=== PATIENT | male | born 1970 | race African-American/Black ===

== ENCOUNTER 2017-12-05 14:06 | Emergency (ER) | payer BC ==
[~2017-12-05] VITALS: Ht 177.8 cm; Wt 127.0 kg
[2017-12-05] MEDS ORDERED: methylPREDNISolone SOD SUCC PF 125 MG/2 ML VIAL. IM ONE (14:45)
[2017-12-05] MEDS ORDERED: ACETAMINOPHEN 500 MG TABLET PO ONE (14:45)
[2017-12-05] MEDS ORDERED: IPRATRPIUM/ALBUTEROL 0.5/2.5MG 3 ML NEBU. NEB ONE (14:45)
--- NOTE | 2017-12-05 14:57 | RAD ---
2 view chest 12/05/2017 Clinical indication: Fever, shortness of breath, COPD. Comparison: None. Findings: Cardiac and mediastinal silhouettes are unremarkable. There is mild by basilar atelectasis or scarring. No pleural effusion, pneumothorax or focal consolidation. Impression: Mild bibasilar atelectasis or scarring without evidence of CHF or consolidating pneumonia.
--- NOTE | 2017-12-05 15:30 | PHYS DOC ---
General Chief Complaint: FLU SYMPTOM Stated Complaint: FLU LIKE SYMPTOMS Time Seen by MD: 14:31 Source: patient Exam Limitations: no limitations Problems: History of Present Illness Initial Comments Patient is a 47-year-old male who comes to the ED complaining of fever cough and flulike symptoms. Patient states that since Friday he's had worsening cough with yellow-brown sputum, he began wheezing today and has had some shortness of breath. He has history of asthma and has been out of his medications for a few weeks as his has been ill with pneumonia. He's been having chills and sweats, he is also complaining of severe left-sided abdominal pain which he feels is a pulled muscle from the severe coughing. He has history of hypertension and hyperlipidemia as well, he has no prior cardiac workup and has no family history of coronary artery disease. He denies a smoking history but states that he has been diagnosed with asthma and COPD. ED vitals: 102.1, 113, 20, 191/114, 95% room air Timing/Duration: other (symptoms worsening since Friday) Severity: severe Modifying Factors: worse with movement, improves with rest Associated Symptoms: cough, diaphoresis, fever/chills, malaise, shortness of breath, other Allergies: Coded Allergies: No Known Drug Allergies (Unverified , 12/05/17) Past Medical History Medical History: asthma, high cholesterol, hypertension Surgical History: noncontributory Family History Significant Family History: no pertinent family hx Social History Smoker: non-smoker Alcohol: none Drugs: none Review of Systems Constitutional: see HPI Respiratory: see HPI Cardiovascular: denies chest pain, denies palpitations, denies syncope Gastrointestinal: see HPI, denies diarrhea, denies nausea, denies vomiting Genitourinary: denies dysuria, denies frequency, denies hematuria Musculoskeletal: denies back pain, denies joint swelling, denies neck pain Psychiatric/Neurological: denies headache, denies numbness, denies paresthesia , denies weakness Physical Exam General Appearance: WD/WN, mild distress Eyes: bilateral eye PERRL, bilateral eye EOMI, bilateral eye other ( conjunctivae injected) Ear, Nose, Throat: hearing grossly normal, normal ENT inspection Neck: non-tender, supple Respiratory: chest non-tender, no accessory muscle use, decreased breath sounds , wheezing Cardiovascular: normal peripheral pulses, tachycardia Gastrointestinal: soft (left-sided abdominal muscle tenderness without palpable defect swelling or ecchymosis, bowel sounds present no rebound guarding or masses negative Garduno negative McBurney) Back: no CVA tenderness, no vertebral tenderness Extremities: normal range of motion, non-tender, no pedal edema, no calf tenderness Neurologic/Psychiatric: road engineer II-XII nml as tested, no motor/sensory deficits, alert, oriented x 3 Skin: normal color, warm/dry Orders, Labs, Meds EKG: Sinus tachycardia 103 bpm, extensive baseline wander artifact no ST segment elevation, interpreted by me PATIENT: MICHELINE CAREY ACCOUNT: [id number] : 1970 LOCATION: ER AGE: 47 SEX: M EXAM STATUS: PRE ER ORD. PHYSICIAN: GUILLE MULLER DO REASON: fever/cough/asthma PROCEDURE: CHEST PA & LATERAL 2 view chest 12/05/2017 Clinical indication: Fever, shortness of breath, COPD. Comparison: None. Findings: Cardiac and mediastinal silhouettes are unremarkable. There is mild by basilar atelectasis or scarring. No pleural effusion, pneumothorax or focal consolidation. Impression: Mild bibasilar atelectasis or scarring without evidence of CHF or consolidating pneumonia. DICTATED AND SIGNED BY: ERNIE WOODSON MD DATE: 12/05/17 1454 CC: GUILLE MULLER DO ~ On patient arrival initially DuoNeb and Solu-Medrol influenza swabs a and chest x-ray ordered. Influenza A and B were negative, DuoNeb and Solu-Medrol with minimal improvement in the patient's symptoms. 1610: I discussed findings with the patient, although his fever has resolved he is now diaphoretic with worsening of his abdominal pain and dyspnea symptoms. Cardiac aspirin and nitroglycerin given, workup initiated, patient's abdominal pain and dyspnea symptoms improved from 10 out of 10 to 3 out of 10 with sublingual nitroglycerin 1. Pertinent labs: Troponin 0.107, creatine kinase 2760, potassium 3.4 Normal saline bolus initiated due to rhabdomyolysis. 1805: I discussed the patient with closer on customer engineer Dr. Caal. After thorough discussion of the patient he recommends no anticoagulation due to the abdominal discomfort, transfer to [facility] where he will evaluate the patient and determine whether or not he will be a candidate for anticoagulation or [facility]. Recommend CVC admission to closer on hospitalist. 1816: I discussed the patient with closer on hospitalist Dr. kruse who accepts CVC admission no new orders. Impression: Rhabdomyolysis Elevated troponin (demand versus ACS) Febrile illness Departure Time of Disposition: 18:23 Disposition: 02 XFER SHT-TRM HOSP Diagnosis: rhabdomyolysis, elevated troponin, febrile illness Condition: STABLE Additional Instructions: EMS transfer to [facility] for CVC admission Dr. kruse is accepting and Dr. Caal to be consulted upon patient arrival. GUILLE MULLER DO Dec 05, 2017 15:30
[2017-12-05 15:34] LABS: INFLUENZA A PATIENT NEGATIVE (NEGATIVE); INFLUENZA B PATIENT NEGATIVE (NEGATIVE)
[2017-12-05] MEDS ORDERED: NITROGLYCERIN SUBLINGUAL 0.4 MG BOTTLE OF 25. SL PRN (16:30)
--- NOTE | 2017-12-05 16:32 | EKG ---
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
[2017-12-05] MEDS ORDERED: ASPIRIN 81 MG TAB.CHEW PO ONE (16:50)
[2017-12-05 17:23] LABS: BASO % 0 % (0-3); EOS # 0.2 x10^3/uL (0.0-0.7); EOS % 2 % (0-3); HEMATOCRIT 40.4 % (39.0-53.0); HEMOGLOBIN 13.6 g/dL (13.0-17.5); LYMPH # 0.6 x10^3/uL (1.0-4.8); LYMPH % 6 % (24-48); MEAN CORPUSCULAR HEMOGLOBIN 29 pg (25-35); MEAN CORPUSCULAR HGB CONC 34 g/dL (31-37); MEAN CORPUSCULAR VOLUME 87 fL (79-100); MONO # 0.6 x10^3/uL (0.0-1.1); MONO % 6 % (0-9); NEUT # 7.8 x10^3uL (1.8-7.7); NEUT % 85 % (31-73); PLATELET COUNT 292 x10^3/uL (140-400); RED BLOOD COUNT 4.64 x10^6/uL (4.30-5.70); RED CELL DISTRIBUTION WIDTH 12.3 % (11.5-14.5); WHITE BLOOD COUNT 9.2 x10^3/uL (4.0-11.0)
[2017-12-05 17:37] LABS: BARBITURATES NEG (NEG); BENZODIAZEPINES NEG (NEG); CANNABINOIDS NEG (NEG); COCAINE NEG (NEG); METHADONE NEG (NEG); OPIATES NEG (NEG); PHENCYCLIDINE NEG (NEG)
[2017-12-05 17:38] LABS: AMPHETAMINE/METHAMPHETAMINE NEG (NEG)
[2017-12-05 17:52] LABS: ALBUMIN 4.1 g/dL (3.4-5.0); ALBUMIN/GLOBULIN RATIO 1.2 (1.0-1.7); CREATININE 1.3 mg/dL (0.7-1.3); GFR 58.9; POTASSIUM 3.4 mmol/L (3.5-5.1); TOTAL BILIRUBIN 0.5 mg/dL (0.2-1.0); TOTAL PROTEIN 7.5 g/dL (6.4-8.2)
[2017-12-05] MEDS ORDERED: IV NORMAL SALINE 1,000ML 1,000 ML IV SCH (18:00)
[2017-12-05 19:43] VITALS: BP 128/104
== END 2017-12-05 20:25 | disposition short-term general hospital (02) ==
LOC: ER 14:06
DX: M62.82 Rhabdomyolysis (principal); R79.89 Other specified abnormal findings of blood chemistry; E78.00 Pure hypercholesterolemia, unspecified; I10 Essential (primary) hypertension
CPT/HCPCS: 36415; 71046; 80053; 80307; 82550; 83605; 83690; 83880; 84484; 85025; 85379; 87040; 87804; 93005; 94640; 96360; 96372; 99285; J2930; J7620; G0479; J7030

== ENCOUNTER 2018-11-20 18:48 | Emergency (ER) | payer BC ==
[~2018-11-20] VITALS: Ht 304.8 cm; Wt 130.7 kg
[2018-11-20] MEDS ORDERED: LIDO:MAALOX 1:1 20 ML SINGLE DOSE. PO ONE (19:15)
[2018-11-20] MEDS ORDERED: PANTOPRAZOLE 40 MG TABLET. PO ONE (19:15)
[2018-11-20] MEDS ORDERED: ALBUTEROL SULFATE 2.5 MG/3 ML NEBU. NEB ONE (19:45)
[2018-11-20 20:14] LABS: BASO # 0.1 x10^3/uL (0.0-0.2); BASO % 1 % (0-3); EOS # 0.3 x10^3/uL (0.0-0.7); EOS % 4 % (0-3); HEMOGLOBIN 13.1 g/dL (13.0-17.5); LYMPH # 2.1 x10^3/uL (1.0-4.8); LYMPH % 25 % (24-48); MEAN CORPUSCULAR HEMOGLOBIN 30 pg (25-35); MEAN CORPUSCULAR HGB CONC 34 g/dL (31-37); MEAN CORPUSCULAR VOLUME 88 fL (79-100); MONO # 0.6 x10^3/uL (0.0-1.1); MONO % 7 % (0-9); NEUT # 5.4 x10^3uL (1.8-7.7); NEUT % 63 % (31-73); PLATELET COUNT 268 x10^3/uL (140-400); RED BLOOD COUNT 4.43 x10^6/uL (4.30-5.70); RED CELL DISTRIBUTION WIDTH 13.1 % (11.5-14.5); WHITE BLOOD COUNT 8.5 x10^3/uL (4.0-11.0)
[2018-11-20 20:20] LABS: ALBUMIN 3.7 g/dL (3.4-5.0); ALBUMIN/GLOBULIN RATIO 1.1 (1.0-1.7); CALCIUM 8.6 mg/dL (8.5-10.1); CREATININE 1.1 mg/dL (0.7-1.3); GFR 86.1; POTASSIUM 3.9 mmol/L (3.5-5.1); TOTAL BILIRUBIN 0.7 mg/dL (0.2-1.0)
[2018-11-20] MEDS ORDERED: ASPIRIN 81 MG TAB.CHEW PO ONE (21:00)
[2018-11-20] MEDS ORDERED: ISOSORBIDE MONONITRATE ER 30 MG TAB.ER.24H PO ONE (21:15)
--- NOTE | 2018-11-20 21:42 | ED.ADGEN ---
Past History Past Medical History: COPD, Hypertension Past Surgical History: No Surgical History Alcohol Use: Occasionally Drug Use: None Adult General Chief Complaint Chief Complaint epigastric pain, HPI HPI 48 years old gentleman with multiple medical problems including hypertension, obesity, dyslipidemia,GISELLA was in the hospital with epigastric pain and shortness breath described his pain as a burning sensation in the epigastric area he stated that his been feeling short of breath for the past few months and got worse last week Review of Systems Review of Systems Constitutional: Denies fever or chills [] Eyes: Denies change in visual acuity, redness, or eye pain [] HENT: Denies nasal congestion or sore throat [] Respiratory: Denies cough Cardiovascular: No additional information not addressed in HPI [] GI: Denies abdominal pain, nausea, vomiting, bloody stools or diarrhea [] : Denies dysuria or hematuria [] Musculoskeletal: Denies back pain or joint pain [] Integument: Denies rash or skin lesions [] Neurologic: Denies headache, focal weakness or sensory changes [] Endocrine: Denies polyuria or polydipsia [] All other systems were reviewed and found to be within normal limits, except as documented in this note. Current Medications Current Medications Current Medications Medications (Trade) Dose Ordered Sig/Hoang Start Time Stop Time Status Last Admin Dose Admin Albuterol Sulfate (Ventolin) 2.5 mg 1X ONCE 11/20/18 19:45 11/20/18 19:53 DC 11/20/18 19:55 2.5 MG Aspirin (Children'S Aspirin) 324 mg 1X ONCE 11/20/18 21:00 11/20/18 21:02 DC 11/20/18 21:46 324 MG Isosorbide Mononitrate (Imdur) 60 mg 1X ONCE 11/20/18 21:15 11/20/18 21:16 DC 11/20/18 21:45 60 MG Multi-Ingredient Mouthwash/Gargle (Gi Cocktail) 20 ml 1X ONCE 11/20/18 19:15 11/20/18 19:31 DC 11/20/18 19:27 20 ML Pantoprazole Sodium (Protonix) 40 mg 1X ONCE 11/20/18 19:15 11/20/18 19:31 DC 11/20/18 19:27 40 MG Allergies Allergies Allergies Coded Allergies Type Severity Reaction Last Updated Verified Influenza Virus Vaccines Adverse Reaction Mild 11/20/18 Yes Physical Exam Physical Exam Constitutional: Well developed, well nourished, no acute distress, non-toxic appearance. [] HENT: Normocephalic, atraumatic, bilateral external ears normal, oropharynx moist, no oral exudates, nose normal. [] Eyes: PERRLA, EOMI, conjunctiva normal, no discharge. [] Neck: Normal range of motion, no tenderness, supple, no stridor. [] Cardiovascular:Heart rate regular rhythm, no murmur [] Lungs & Thorax: Bilateral breath sounds clear to auscultation [] Abdomen: Bowel sounds normal, soft, no tenderness, no masses, no pulsatile masses. [] Skin: Warm, dry, no erythema, no rash. [] Back: No tenderness, no CVA tenderness. [] Extremities: No tenderness, no cyanosis, no clubbing, ROM intact, no edema. [] Neurologic: Alert and oriented X 3, normal motor function, normal sensory function, no focal deficits noted. [] Psychologic: Affect normal, judgement normal, mood normal. [] Current Patient Data Vital Signs Vital Signs Date Time Temp Pulse Resp B/P (MAP) Pulse Ox O2 Delivery O2 Flow Rate FiO2 11/20/18 21:45 80 181/101 Lab Results Laboratory Tests Test 11/20/18 19:50 White Blood Count 8.5 x10^3/uL (4.0-11.0) Red Blood Count 4.43 x10^6/uL (4.30-5.70) Hemoglobin 13.1 g/dL (13.0-17.5) Hematocrit 39.0 % (39.0-53.0) Mean Corpuscular Volume 88 fL (79-100) Mean Corpuscular Hemoglobin 30 pg (25-35) Mean Corpuscular Hemoglobin Concent 34 g/dL (31-37) Red Cell Distribution Width 13.1 % (11.5-14.5) Platelet Count 268 x10^3/uL (140-400) Neutrophils (%) (Auto) 63 % (31-73) Lymphocytes (%) (Auto) 25 % (24-48) Monocytes (%) (Auto) 7 % (0-9) Eosinophils (%) (Auto) 4 % (0-3) H Basophils (%) (Auto) 1 % (0-3) Neutrophils # (Auto) 5.4 x10^3uL (1.8-7.7) Lymphocytes # (Auto) 2.1 x10^3/uL (1.0-4.8) Monocytes # (Auto) 0.6 x10^3/uL (0.0-1.1) Eosinophils # (Auto) 0.3 x10^3/uL (0.0-0.7) Basophils # (Auto) 0.1 x10^3/uL (0.0-0.2) Sodium Level 144 mmol/L (136-145) Potassium Level 3.9 mmol/L (3.5-5.1) Chloride Level 106 mmol/L (98-107) Carbon Dioxide Level 30 mmol/L (21-32) Anion Gap 8 (6-14) Blood Urea Nitrogen 16 mg/dL (8-26) Creatinine 1.1 mg/dL (0.7-1.3) Estimated GFR (Cockcroft-Gault) 86.1 BUN/Creatinine Ratio 15 (6-20) Glucose Level 139 mg/dL (70-99) H Calcium Level 8.6 mg/dL (8.5-10.1) Total Bilirubin 0.7 mg/dL (0.2-1.0) Aspartate Amino Transferase (AST) 56 U/L (15-37) H Alanine Aminotransferase (ALT) 96 U/L (16-63) H Alkaline Phosphatase 69 U/L (46-116) Troponin I Quantitative 0.046 ng/mL (0-0.055) Total Protein 7.0 g/dL (6.4-8.2) Albumin 3.7 g/dL (3.4-5.0) Albumin/Globulin Ratio 1.1 (1.0-1.7) Lipase 75 U/L (73-393) EKG EKG No acute ischemic changes[] Radiology/Procedures Radiology/Procedures [] Course & Med Decision Making Course & Med Decision Making Pertinent Labs and Imaging studies reviewed. (See chart for details) Had a very lengthy discussion with the patient regarding than him to the hospital to rule out acute coronary syndrome or other diagnosis he declined I explained the risk and benefits including , heart attack, stroke, worsening medical condition he verbalizes understanding and signed AGAINST MEDICAL ADVICE and left [] Final Impression Final Impression [] Problems: (1) Epigastric pain Dragon Disclaimer Dragon Disclaimer This electronic medical record was generated, in whole or in part, using a voice recognition dictation system. TRINI REYNA MD Nov 20, 2018 21:42
[2018-11-20] MEDS ORDERED: NITR0.3T5 SL (21:50)
[2018-11-20] MEDS ORDERED: PANT20TA58 PO (21:50)
[2018-11-20] MEDS ORDERED: AMLO5TAB4 PO (21:50)
[2018-11-20] MEDS ORDERED: NITR0.4T22 SL (21:50)
[2018-11-20] MEDS ORDERED: amLODIPine BESYLATE 5 MG TABLET PO ONE (22:00)
[2018-11-20 22:15] VITALS: BP 156/103
--- NOTE | 2018-11-21 00:20 | RAD ---
CHEST AP ONLY Clinical Indication: Dyspnea and chest pain. Hx COPD Comparison: Two-view chest December 05, 2017. Findings: The cardiomediastinal silhouette is normal. Lungs are clear. There is no pneumothorax. No pleural effusion is appreciated. No acute bone abnormality. IMPRESSION: No acute cardiopulmonary process. Electronically signed by: Mckay Martinez MD (11/21/2018 12:15 AM) [facility]
--- NOTE | 2018-11-25 17:33 | EKG ---
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
== END 2018-11-20 22:25 | disposition left against medical advice (07) ==
LOC: ER 18:48
DX: R10.13 Epigastric pain (principal); J44.9 Chronic obstructive pulmonary disease, unspecified; I10 Essential (primary) hypertension; E78.5 Hyperlipidemia, unspecified; E66.9 Obesity, unspecified; G47.33 Obstructive sleep apnea (adult) (pediatric); Z68.1 Body mass index [BMI] 19.9 or less, adult; Z88.7 Allergy status to serum and vaccine
CPT/HCPCS: 36415; 71045; 80053; 83690; 84484; 85025; 94640; 99284; J7613

== ENCOUNTER 2020-04-08 15:30 | Inpatient (IN) | payer BC ==
[~2020-04-08] VITALS: Ht 180.3 cm; Wt 132.7 kg
[~2020-04-08 15:30] MED LIST: AMLO5TAB4 PO; NITR0.3T5 SL; NITR0.4T22 SL; PANT20TA58 PO
--- NOTE | 2020-04-08 15:38 | PHYS DOC ---
Past History Past Medical History: COPD, High Cholesterol, Hypertension, Pneumonia, Other Past Surgical History: No Surgical History Alcohol Use: Rarely Drug Use: None General Adult EDM: Chief Complaint: COUGH HPI: HPI: 50-year-old male presents via EMS with cough and his COVID-19 positive. He was diagnosed 8 days ago. Patient states that he has been coughing so much that he now has lower rib/upper abdominal pain on the right. The patient has been feeling worse overall the last couple of days. He feels like he has been more tired with less exertion. His is also COVID-19 positive, but she is less symptomatic. Review of Systems: Review of Systems: Constitutional: Fever Eyes: Denies change in visual acuity HENT: Denies nasal congestion or sore throat Respiratory: Cough with shortness of breath Cardiovascular: Denies chest pain or edema GI: Denies abdominal pain, nausea, vomiting, bloody stools or diarrhea : Denies dysuria Musculoskeletal: Right lower rib pain Integument: Denies rash Neurologic: Denies headache, focal weakness or sensory changes Endocrine: Denies polyuria or polydipsia Lymphatic: Denies swollen glands Psychiatric: Denies depression or anxiety Heart Score: Risk Factors: Risk Factors: DM, Current or recent (<one month) smoker, HTN, HLP, family history of CAD, obesity. Risk Scores: Score 0 - 3: 2.5% MACE over next 6 weeks - Discharge Home Score 4 - 6: 20.3% MACE over next 6 weeks - Admit for Clinical Observation Score 7 - 10: 72.7% MACE over next 6 weeks - Early Invasive Strategies Allergies: Allergies: Allergies Coded Allergies Type Severity Reaction Last Updated Verified Influenza Virus Vaccines Adverse Reaction Mild 11/20/18 Yes Physical Exam: PE: Constitutional: Well developed, well nourished, no acute distress, non-toxic appearance. [] HENT: Normocephalic, atraumatic, bilateral external ears normal, oropharynx moist, no oral exudates, nose normal. [] Eyes: PERRLA, EOMI, conjunctiva normal, no discharge. [] Neck: Normal range of motion, no tenderness, supple, no stridor. [] Cardiovascular:Heart rate regular rhythm, no murmur [] Lungs & Thorax: Bilateral breath sounds clear to auscultation [] Abdomen: Bowel sounds normal, soft, no tenderness, no masses, no pulsatile masses. [] Skin: Warm, dry, no erythema, no rash. [] Back: No tenderness, no CVA tenderness. [] Extremities: No tenderness, no cyanosis, no clubbing, ROM intact, no edema. [] Neurologic: Alert and oriented X 3, normal motor function, normal sensory function, no focal deficits noted. [] Psychologic: Affect normal, judgement normal, mood normal. [] EKG: EKG: Sinus rhythm, rate 89, leftward axis, no ST elevations or depressions [] Radiology/Procedures: Radiology/Procedures: [] Impressions: Single view chest dated 04/08/2020. Comparison made to 04/20/2019. CLINICAL INDICATION: Cough. History of COVID-19 FINDINGS: Single upright portable exam performed. Heart size is mildly enlarged, stable. There is some prominent perihilar linear markings, similar given differences in technique. Mild increase in patchy density at the right mid zone. No consolidation or pleural effusion. No pneumothorax. The lung volumes are low, somewhat limiting evaluation. IMPRESSION: 1. Mild patchy perihilar opacity in the right, atelectasis versus early pneumonia. 2. Mild cardiomegaly, unchanged. Electronically signed by: Remi Dyer MD (04/08/2020 4:24 PM) [facility] DICTATED AND SIGNED BY: REMI DYER MD DATE: 04/08/20 1624 CC: GERI BANUELOS DO; MEIR DAVIS MD ~ Course & Med Decision Making: Course & Med Decision Making Pertinent Labs and Imaging studies reviewed. (See chart for details) The patient's labs are unremarkable. He does have slightly elevated liver enzymes. He has a borderline low white blood cell count and some mild anemia. His chest x-ray is suggestive of possible perihilar atelectasis or early consolidation. Since he is known COVID positive, I will not treat him with antibiotics as they are not likely to be effective. He had a fever 100.5 on arrival so we gave him a gram of Tylenol. His resting O2 saturation is 90 to 91%. I spoke with his physician, Dr. Davis and he has accepted the patient for admission. [] Dragon Disclaimer: Dragjudd Disclaimer: This electronic medical record was generated, in whole or in part, using a voice recognition dictation system. Departure Departure: Impression: Primary Impression: COVID-19 Additional Impression: Shortness of breath Disposition: ADMITTED INPATIENT Admitting Physician: Meir Davis Condition: STABLE Referrals: MEIR DAVIS MD (PCP) GERI BANUELOS DO April 08, 2020 15:38
[2020-04-08] MEDS ORDERED: ONDANSETRON PF 4 MG/2 ML VIAL. IVP ONE (16:00)
[2020-04-08] MEDS ORDERED: MORPHINE SULFATE 2 MG/ML DISP.SYRIN. IV ONE (16:00)
[2020-04-08] MEDS ORDERED: ACETAMINOPHEN 500 MG TABLET PO ONE (16:00)
[2020-04-08 16:10] LABS: BASO % 1 % (0-3); EOS % 1 % (0-3); HEMATOCRIT 36.1 % (39.0-53.0); HEMOGLOBIN 12.1 g/dL (13.0-17.5); LYMPH # 1.3 x10^3/uL (1.0-4.8); LYMPH % 33 % (24-48); MEAN CORPUSCULAR HEMOGLOBIN 30 pg (25-35); MEAN CORPUSCULAR HGB CONC 34 g/dL (31-37); MEAN CORPUSCULAR VOLUME 89 fL (79-100); MONO # 0.4 x10^3/uL (0.0-1.1); MONO % 11 % (0-9); NEUT # 2.1 x10^3uL (1.8-7.7); NEUT % 54 % (31-73); PLATELET COUNT 219 x10^3/uL (140-400); RED BLOOD COUNT 4.08 x10^6/uL (4.30-5.70); RED CELL DISTRIBUTION WIDTH 12.2 % (11.5-14.5); WHITE BLOOD COUNT 3.9 x10^3/uL (4.0-11.0)
--- NOTE | 2020-04-08 16:15 | EKG ---
[address] [address] Test Date: 2020-04-08 Test Time: 15:52:45 Pat Name: MICHELINE CAREY Department: Room: Gender: M Palliative Care Coordinator: : 1970 Requested By: GERI BANUELOS Order Number: [id number] Reading MD: Measurements Intervals [place] Rate: 89 P: 62 [place]: 192 QRS: -50 QRSD: 106 T: 38 QT: 356 QTc: 434 Interpretive Statements SINUS RHYTHM ABNORMAL LEFT AXIS DEVIATION LEFT ANTERIOR FASCICULAR BLOCK ABNORMAL ECG RI6.02 Compared to ECG 11/20/2018 18:59:29 Left anterior fascicular block now present
--- NOTE | 2020-04-08 16:27 | RAD ---
Single view chest dated 04/08/2020. Comparison made to 04/20/2019. CLINICAL INDICATION: Cough. History of COVID-19 FINDINGS: Single upright portable exam performed. Heart size is mildly enlarged, stable. There is some prominent perihilar linear markings, similar given differences in technique. Mild increase in patchy density at the right mid zone. No consolidation or pleural effusion. No pneumothorax. The lung volumes are low, somewhat limiting evaluation. IMPRESSION: 1. Mild patchy perihilar opacity in the right, atelectasis versus early pneumonia. 2. Mild cardiomegaly, unchanged. Electronically signed by: Remi Dyer MD (04/08/2020 4:24 PM) [facility]
[2020-04-08 16:30] LABS: ALBUMIN 3.5 g/dL (3.4-5.0); CREATININE 1.1 mg/dL (0.7-1.3); GFR 85.4; POTASSIUM 3.9 mmol/L (3.5-5.1); TOTAL BILIRUBIN 0.6 mg/dL (0.2-1.0); TOTAL PROTEIN 6.9 g/dL (6.4-8.2)
[2020-04-08] MEDS ORDERED: ONDANSETRON PF 4 MG/2 ML VIAL. IVP PRN ×2 (17:00→19:00)
[2020-04-08] MEDS ORDERED: ALBUTEROL SULFATE 8GM INHALER. INH PRN (19:00)
[2020-04-08] MEDS ORDERED: ALBUTEROL SULFATE 2.5 MG/3 ML NEBU. NEB PRN (19:00)
[2020-04-08 19:13] VITALS: BP 117/53
[2020-04-08] MEDS ORDERED: AMLO10TA4 PO (19:22)
[2020-04-08] MEDS ORDERED: MONT10TA80 PO (19:22)
[2020-04-08 19:27] VITALS: BP 139/76
[2020-04-08] MEDS ORDERED: MONTELUKAST 10 MG TABLET. PO SCH (21:00)
[2020-04-08 23:25] VITALS: BP 135/79
[2020-04-08] MEDS: MORPHINE SULFATE 4 MG/ML DISP.SYRIN. IVP PRN (23:39)
[2020-04-08] MEDS: ACETAMINOPHEN 500 MG TABLET PO PRN (23:42)
[2020-04-09 06:08] VITALS: BP 107/41
[2020-04-09 07:00] LABS: BASO % 1 % (0-3); EOS % 1 % (0-3); HEMATOCRIT 35.1 % (39.0-53.0); HEMOGLOBIN 11.8 g/dL (13.0-17.5); LYMPH # 1.2 x10^3/uL (1.0-4.8); LYMPH % 28 % (24-48); MEAN CORPUSCULAR HEMOGLOBIN 30 pg (25-35); MEAN CORPUSCULAR HGB CONC 34 g/dL (31-37); MEAN CORPUSCULAR VOLUME 89 fL (79-100); MONO # 0.5 x10^3/uL (0.0-1.1); MONO % 11 % (0-9); NEUT # 2.5 x10^3uL (1.8-7.7); NEUT % 59 % (31-73); PLATELET COUNT 232 x10^3/uL (140-400); RED BLOOD COUNT 3.96 x10^6/uL (4.30-5.70); RED CELL DISTRIBUTION WIDTH 11.9 % (11.5-14.5); WHITE BLOOD COUNT 4.2 x10^3/uL (4.0-11.0)
[2020-04-09 07:14] LABS: ALBUMIN 3.3 g/dL (3.4-5.0); ALBUMIN/GLOBULIN RATIO 0.8 (1.0-1.7); CALCIUM 8.4 mg/dL (8.5-10.1); CREATININE 1.1 mg/dL (0.7-1.3); GFR 85.4; POTASSIUM 3.8 mmol/L (3.5-5.1); TOTAL BILIRUBIN 0.6 mg/dL (0.2-1.0); TOTAL PROTEIN 7.2 g/dL (6.4-8.2)
[2020-04-09] MEDS: ACETAMINOPHEN 500 MG TABLET PO PRN ×2 (07:24→15:27)
[2020-04-09] MEDS ORDERED: ALBUTEROL SULFATE 8GM INHALER. INH PRN (08:45)
[2020-04-09] MEDS ORDERED: ENOXAPARIN ** NOTE DOSE ** SYRINGE SQ SCH (10:00)
[2020-04-09 10:09] VITALS: BP 134/84
[2020-04-09] MEDS ORDERED: IOHEXOL 350 MG/ML 100 ML VIAL. IV ONE (11:45)
--- NOTE | 2020-04-09 12:19 | HP ---
ADMIT DATE: 04/08/2020 HISTORY OF PRESENT ILLNESS: This is a 50-year-old male, approximately 8 days ago, came in through the office where he had an upper respiratory tract infection. This patient has a history of hypertension and an asthmatic condition. At any case, he noted that at that time the respiratory symptoms of cough and congestion started the day that he was seen on 03/30/2020. He also uses a CPAP machine. The patient had a mild cough, nasal drainage, chest congestion. 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 He does not come in contact with the individuals there. The patient also had some flank pain, but he also noted numbness down his right leg. The patient at that time had a PCR test done for urine as well as respiratory, those results came in later obviously and were reported out to the patient, he did have the SARS-CoV-2 positive. His other respiratory tract infections organisms were negative. Interestingly enough, urine PCR was also performed and showed ____ organism called Actinobaculum schaalii was detected. The patient was placed on oral antibiotics. The patient was doing reasonably well, although here in the last 24 hours prior to admission, he came in through the Emergency Room here at [facility]. He noted he had become increasingly more short of breath, dyspneic. The patient complained of some upper abdominal pain on the right. He denied any nausea or vomiting. He does note he is more dyspneic than usual. He also was notified that his is COVID-19 positive. She works at the [employer]. In any case, he was seen down in the Emergency Room here at [facility]. ER doctor decided to admit him here. His chest x-ray showed patchy perihilar opacity in the right probable early pneumonia and mild cardiomegaly. The patient was admitted for SARS COVID-19 high risk 50-year-old Afro-Dominican male, underlying history of asthma or some other respiratory disease, morbid obesity, sleep apnea, elevated liver enzymes. The patient's past medical history as indicated a form of asthma as well as sleep apnea, hyperglycemia, hyperlipidemia, proteinuria. He has mixed hyperlipidemia, morbid obesity. The patient did have an echocardiogram in 2018 that showed ejection fraction of 50-55% with mild concentric left ventricular hypertrophy. He has had previous history of multifocal pneumonia in the past. MEDICATIONS: Include Cialis 10 mg, Proventil HFA, which he says does not help. Singulair 10 mg a day, amlodipine 10 mg a day. The patient has recently been treated with Z-LUCIO. PAST MEDICAL HISTORY: As noted above. ALLERGIES: Allergy to possible BENICAR, but actually looks more like a side effect. He says upset stomach and gets dizzy with it. FAMILY HISTORY: Positive for asthma. SOCIAL HISTORY: The patient denies smoking, alcohol or drug use. REVIEW OF SYSTEMS: General, lethargy, fatigue, marked dyspnea. Denies chest pain, but does have cough, shortness of breath with minimal exertion. Does have some right abdominal pain. He notes he has some numbness and tingling to the right leg itself, but not the right arm. There are no signs of any stroke or TIA symptoms with this gentleman. He denies chilling diaphoresis. No problem with diarrhea, no leg cramping. No chest pain. PHYSICAL EXAMINATION: GENERAL: On exam here at [facility], this is a pleasant Afro-Dominican gentleman, very lethargic, somewhat depressed, thinks he is going to . VITAL SIGNS: Blood pressure 134/84, respiratory rate 20, pulse 92, temperature 99.4, respiratory rate is indicated 20 with oxygen 2 liters at 94%. Initially when he came in through the Emergency Room, his temperature was 100.5. HEENT: Otherwise, head was atraumatic, normocephalic. Eyes: PERRLA without jaundice. Mouth and throat were normal. No petechiae noted. NECK: Supple, without JVD, carotid bruits or thyromegaly markedly enlarged. LUNGS: The patient's lungs were diminished throughout, poor movement of air throughout all lobes. CARDIOVASCULAR: Regular sinus rhythm, laterally displaced at the PMI. ABDOMEN: Protuberant. Some tenderness in the right upper quadrant, but no guarding, no rebounding. Positive bowel sounds, no hepatosplenomegaly. NEUROLOGIC: The patient is able to move all extremities well, but extremely weak, has ability to move his extremities, but symmetrical. Plantars are down. Some numbness to light touch in the right lower leg in the upper thigh area. Speech tillman it is alert and oriented. He is comprehending. Speech is appropriate. Cranial nerves 2-12 are noted grossly intact. LABORATORY DATA: As indicated. His white count is 3.9, hemoglobin 11.8 and 35. He does have an increase in monocytes 11%, platelets 232. Chemistries, sodium 137, potassium 3.8, BUN and creatinine 15 and 1.1, glucose 117, total bilirubin 0.6, AST 55, ALT 69, alkaline phosphatase was normal. Troponin 0.05. Albumin slightly low at 3.3. Coag 0.58. Due to the limitations here, not able to do a CTA or V/Q at the present time because of his positive nature. The patient was started on IV Levaquin and Rocephin since he just finished a course of Zithromax. Discussed with the patient, initially did not want to be transferred at all because of his overall depressive attitude of possibly dying from this. I tried to encourage him that he would ____ will get medical assistance and he finally consented to be transferred down to [facility], which was his preference and we checked the insurance and I will cover that area. IMPRESSION: SARS COVID-19, pneumonia, morbid obesity, sleep apnea, dyspnea, hyperglycemia, elevated liver enzymes, mild depressive disorder, high risk for clots. He is on Lovenox 60 mg. His weight was 132 kilos, BMI of 40. Height 180 cm. PLAN: The patient will be transferred when they give us appropriate information about room availability. Patient is appropriate with that. We discussed it with his and she is in agreement as well. MEIR DAVIS MD DR: MARGO/vidhya JOB#: [id number] / [id number]
[2020-04-09 13:00] VITALS: BP 124/79
[2020-04-09] MEDS: MORPHINE SULFATE 4 MG/ML DISP.SYRIN. IVP PRN (15:18)
--- NOTE | 2020-04-09 16:15 | RAD ---
Study: CR ACUTE ABDOMEN SERIES Indication: Dyspnea. Elevated d-dimer. Comparison: 04/08/2020 chest radiograph Findings: Hazy infiltrates involving both lungs which are predominantly subpleural and most conspicuous at the lower lung zones. No layering effusion or pneumothorax. The cardiomediastinal silhouette is prominent in size and the central vasculature appears congested. Nonspecific bowel gas pattern without obstructive features. Relative paucity of small bowel gas. No free air seen under the diaphragm. Impression: 1. Hazy infiltrates involving both lungs mainly subpleural in distribution and most conspicuous at the lower lung zones. 2. Nonobstructive bowel gas pattern. No free air seen under the diaphragm. Electronically signed by: CRYSTAL SANTACRUZ MD (04/09/2020 4:12 PM) [id number]
--- NOTE | 2020-04-09 16:20 | RAD ---
CTA chest with contrast dated 04/09/2020. No comparison available. CLINICAL INDICATION: Chest pain and shortness of breath. Evaluate for pulmonary embolus. Covid 19+ TECHNIQUE: Contiguous axial imaging of the chest performed following the intravenous and demonstration of 100 cc Omnipaque 350. Study was performed as dedicated PE protocol with thin cut coronal MIPS 3-D reconstruction. One or more of the following individualized dose reduction techniques were utilized for this examination: 1. Automated exposure control 2. Adjustment of the mA and/or kV according to patient size 3. Use of iterative reconstruction technique. FINDINGS: Study is somewhat limited due to motion artifact and diminished contrast bolus. No evidence of central, lobar or proximal segmental pulmonary embolus. The distal segmental and subsegmental branches are not well evaluated based on technique. Heart size is mildly enlarged. No pericardial effusion. There are enlarged mediastinal and bilateral hilar lymph nodes. A right paratracheal lymph node measures up to 1.5 cm short axis. Subcarinal lymph node measures up to 1.6 cm short axis. No axillary adenopathy or supraclavicular lymphadenopathy. There is heterogeneous enlargement of the thyroid gland. Central airways are patent. Mild emphysema. Patchy groundglass opacity throughout both lungs, predominantly located near the periphery of both lungs, some of which are nodular. There are also prominent interstitial markings with diffuse bronchial wall thickening. Limited images of the upper abdomen are unremarkable. Bone windows show no acute findings. Multilevel spondylosis IMPRESSION: 1. No evidence of central, lobar or proximal segmental pulmonary embolus. The distal segmental and subsegmental branches are not well evaluated due to motion artifact. 2. Patchy bilateral airspace disease with nodular areas of peripheral consolidation throughout both lungs, nonspecific but possibly related to given history of viral pneumonitis. 3. Mediastinal and bilateral hilar lymphadenopathy, likely reactive. Electronically signed by: Remi Dyer MD (04/09/2020 4:18 PM) [facility]
== END 2020-04-09 16:00 | disposition short-term general hospital (02) | DRG 177 ==
LOC: ER 15:30 → 1 SOUTH 16:45
PROVIDERS: ADMIT Family Medicine; ATTEND Family Medicine
DX: U07.1 COVID-19 (principal); J12.89 Other viral pneumonia; J44.0 Chronic obstructive pulmonary disease with (acute) lower respiratory infection; Z68.41 Body mass index [BMI] 40.0-44.9, adult; E66.01 Morbid (severe) obesity due to excess calories; E78.2 Mixed hyperlipidemia; F32.9 Major depressive disorder, single episode, unspecified; G47.30 Sleep apnea, unspecified; I10 Essential (primary) hypertension; Z79.01 Long term (current) use of anticoagulants; Z82.5 Family history of asthma and other chronic lower respiratory diseases; Z87.01 Personal history of pneumonia (recurrent)
CPT/HCPCS: 36415; 71045; 71275; 74022; 80053; 83605; 84484; 85025; 85379; 87040; 93005; J0696; J1650; J1956; J2270; J2405; J7613; Q9967

== ENCOUNTER 2021-07-14 21:07 | Emergency (ER) | payer BC ==
[~2021-07-14] VITALS: Ht 180.3 cm; Wt 133.2 kg
[~2021-07-14 21:07] MED LIST changes: +AMLO10TA4 PO; +MONT10TA80 PO
--- NOTE | 2021-07-14 21:17 | PHYS DOC ---
Past History Past Medical History: Asthma, COPD, High Cholesterol, Hypertension, Pneumonia, Other Additional Past Medical Histor: COVID19 POSITIVE X 8 DAYS (DAVID PERALES APRN) Past Surgical History: No Surgical History (DAVID PERALES APRN) Alcohol Use: Rarely Drug Use: None (DAVID PERALES APRN) General Adult EDM: Chief Complaint: BACK PAIN OR INJURY HPI: HPI: Patient is a 51-year-old male being seen in the ER for lower back pain that started around noon today. Patient states that he was lifting a heavy plant and he felt a pop. Patient rates pain 10 out of 10. He took Tylenol around noon today. Patient states that he is unable to bear weight or ambulate since injuring his back. He denies loss of bowel or bladder, numbness or tingling in his extremities, saddle anesthesias. (DAVID PERALES APRN) Review of Systems: Review of Systems: 14 body systems of the review of systems have been reviewed. See HPI for pertinent positive and negative responses, otherwise all other systems are negative, nonpertinent or noncontributory (DAVID PERALES APRN) Current Medications: Current Meds: Current Medications Medications (Trade) Dose Ordered Sig/Hoang Start Time Stop Time Status Last Admin Dose Admin Acetaminophen (Tylenol) 1,000 mg 1X ONCE 07/14/21 21:15 07/14/21 21:16 UNV Morphine Sulfate (Morphine 4mg Syringe) 4 mg 1X ONCE 07/14/21 21:30 07/14/21 21:31 (DAVID PERALES APRN) Allergies: Allergies: Allergies Coded Allergies Type Severity Reaction Last Updated Verified Influenza Virus Vaccines Adverse Reaction Mild 11/20/18 Yes (DAVID PERALES APRN) Physical Exam: PE: Constitutional: Well developed, well nourished, no acute distress, non-toxic appearance. [] HENT: Normocephalic, atraumatic, bilateral external ears normal, oropharynx moist, no oral exudates, nose normal. [] Eyes: PERRL, EOMI, conjunctiva normal, no discharge. [] Neck: Normal range of motion, no stridor Cardiovascular:Heart rate regular rhythm, no murmur [] Lungs & Thorax: Bilateral breath sounds clear to auscultation [] Abdomen: Bowel sounds normal, soft, no tenderness, no masses, no pulsatile masses. [] Skin: Warm, dry, no erythema, no rash. [] Back: Lumbar paraspinal tenderness with palpation, no limited range of motion due to pain Extremities: No tenderness, no cyanosis, no clubbing, ROM intact, no edema. [] Neurologic: Alert and oriented X 3, normal motor function, normal sensory function, no focal deficits noted. [] Psychologic: Affect normal, judgement normal, mood normal. [] (DAVID PERALES APRN) EKG: EKG: [] (DAVID PERALES APRN) Radiology/Procedures: Radiology/Procedures: PROCEDURE: CT THORACIC SPINE WO CONTRAST CT thoracic and lumbar spine without contrast dated 07/14/2021. No comparison available. CLINICAL INDICATION: Pain after injury. TECHNIQUE: Continues axial imaging the thoracic and lumbar spine performed with thin cut coronal and sagittal reconstruction. One or more of the following individualized dose reduction techniques were utilized for this examination: 1. Automated exposure control 2. Adjustment of the mA and/or kV according to patient size 3. Use of iterative reconstruction technique FINDINGS: Sagittal alignment is anatomic. Vertebral body heights are maintained. Posterior elements are intact. No evidence of fracture. Mild endplate hypertrophic changes throughout. There is also mild hypertrophic change of the lower lumbar apophyseal joints. No apparent focal disc herniation. There is mild broad-based bulging at L4-L5 and L5-S1. Mild bilateral foraminal narrowing at the L5-S1 level. Central canal and foramen are otherwise adequate. Visualized soft tissue structures are unremarkable. There is mild hypertrophic change of the bilateral SI joint. Thyroid gland is heterogeneous and enlarged, nonspecific. IMPRESSION: 1. No evidence of fracture or malalignment. 2. Mild multilevel spondylosis. Electronically signed by: Remi Dyer MD (07/14/2021 9:56 PM) [facility] DICTATED AND SIGNED BY: REMI DYER MD DATE: 07/14/212152 CC: ZENIA HERRMANN MD; MEIR DAVIS MD ~MTH0 0[] (DAVID PERALES APRN) Heart Score: C/O Chest Pain: No Risk Factors: Risk Factors: DM, Current or recent (<one month) smoker, HTN, HLP, family history of CAD, obesity. Risk Scores: Score 0 - 3: 2.5% MACE over next 6 weeks - Discharge Home Score 4 - 6: 20.3% MACE over next 6 weeks - Admit for Clinical Observation Score 7 - 10: 72.7% MACE over next 6 weeks - Early Invasive Strategies (DAVID PERALES APRN) Course & Med Decision Making: Course & Med Decision Making Pertinent Labs and Imaging studies reviewed. (See chart for details) Patient is a 51-year-old male being seen in the ER for lower back pain. Imaging was performed in the ER and it showed no acute findings. Patient treated for his pain in the ER. States that he is unable to bear weight and ambulate following the pain medication. I discussed the possibility of patient needing an MRI. Patient does not want to be transferred to another hospital for MRI. Patient is requesting to be discharged home with pain medication. Patient given additional pain medication and muscle relaxer prior to ER discharge. I discussed with patient all findings and diagnostic testing as well as the need to follow-up with PCP for further evaluation and treatment or return to the ER if any new or worsening symptoms. Strict return precautions were also discussed at length. Patient voiced understanding and agreement with the plan. Patient is hemodynamically stable at the time of disposition. (DAVID PERALES APRN) Course & Med Decision Making Did not see or evaluate patient. Agree with MIXER MACHINE FEEDER's work-up and disposition per note. (ZENIA HERRMANN MD) Dragon Disclaimer: Dragon Disclaimer: This electronic medical record was generated, in whole or in part, using a voice recognition dictation system. (DAVID PERALES APRN) Departure Departure: Impression: Primary Impression: Back pain Qualified Codes: M54.5 - Low back pain Disposition: HOME / SELF CARE / HOMELESS Condition: GOOD Referrals: MEIR DAVIS MD (PCP) Patient Instructions: Back Pain, Adult Additional Instructions: You were seen in the ER today for low back pain. The CT scan of your back was negative for any acute findings. Your pain was treated in the ER. You are being discharged home with pain medication and a muscle relaxer. Please caution taking this medication as it may cause sedation. Do not take these medications when you need to be alert and do not take it with alcohol. Please follow-up with your primary care provider on Friday regarding your ER visit. If your pain worsens or you develop numbness or tingling in your extremities or groin, loss of bowel or bladder, inability to bear weight or ambulate you need to go to an ER with MRI capability. EMERGENCY DEPARTMENT GENERAL DISCHARGE INSTRUCTIONS Thank you for coming to [facility] (ED) today and trusting us with you care. We trust that you had a positivie experience in our Emergency Department. If you wish to speak to the department management, you may call the director at [phone]. YOUR FOLLOW UP INSTRUCTIONS ARE FOLLOWS: 1. Do you have a private Doctor? If you do not have a private doctor, please ask for a resource list of physicians or clinics that may be able to assist you with follow up care. 2. The Emergency Physician has interpreted your x-rays. The X-Ray specialist will also review them. If there is a change in the findings, you will be notified in 48 hours when at all possible. 3. A lab test or culture has been done, your results will be reviewed and you will be notified if you need a change in treatment. ADDITIONAL INSTRUCTIONS AND INFORMATION: 1. Your care today has been supervised by a physician who is specially trained in emergency care. Many problems require more than one evaluation for a complete diagnosis and treatment. We recommend that you schedule your follow up appointment as recommended to ensure complete treatment of you illness or injury. If you are unable to obtain follow up care and continue to have a problem, or if your condition worsens, we recommend that you return to the ED. 2. We are not able to safely determine your condition over the phone nor are we able to give sound medical advice over the phone. For these safety reasons, if you call for medical advice we will ask you to come to the ED for further evaluation. 3. If you have any questions regarding these discharge instructions please call the ED at [phone]. SAFETY INFORMATION: In the interest of safety, wellness, and injury prevention; we encourage you to wear your sealbelt, if you smoke; quite smoking, and we encourage family to use a protective helmet for bicycling and other sporting events that present an increased risk for head injury. IF YOUR SYMPTOMS WORSEN OR NEW SYMPTOMS DEVELOP, OR YOU HAVE CONCERNS ABOUT YOUR CONDITION; OR IF YOUR CONDITION WORSENS WHILE YOU ARE WAITING FOR YOUR FOLLOW UP APPOINTMENT; EITHER CONTACT YOUR PRIMARY CARE DOCTOR, THE PHYSICIAN WHOSE NAME AND NUMBER YOU WERE GIVEN, OR RETURN TO THE ED IMMEDIATELY. Scripts Diazepam (VALIUM) 5 Mg Tablet 5 MG PO QHS for muscle spasm for 3 Days, #3 TAB 0 Refills Prov: DAVID PERALES APRN 07/14/21 Oxycodone Hcl/Acetaminophen (PERCOCET 5-325 MG TABLET ) 1 Each Tablet 1 TAB PO PRN Q6HRS PRN for PAIN for 3 Days, #12 TAB 0 Refills Prov: DAVID PERALES APRN 07/14/21 DAVID PERALES APRN Jul 14, 2021 21:17 ZENIA HERRMANN MD Jul 14, 2021 23:11
[2021-07-14] MEDS ORDERED: MORPHINE SULFATE 4 MG/ML DISP.SYRIN. IM ONE (21:30)
[2021-07-14] MEDS ORDERED: ACETAMINOPHEN 500 MG TABLET PO ONE (21:30)
--- NOTE | 2021-07-14 21:59 | RAD ---
CT thoracic and lumbar spine without contrast dated 07/14/2021. No comparison available. CLINICAL INDICATION: Pain after injury. TECHNIQUE: Continues axial imaging the thoracic and lumbar spine performed with thin cut coronal and sagittal re construction. One or more of the following individualized dose reduction techniques were utilized for this examinat ion: 1. Automated exposure control 2. Adjustment of the mA and/or kV according to patient size 3. Use of iterative reconstruction technique FINDINGS: Sagittal alignment is anatomic. Vertebral body heights are maintained. Posterior elements are intact. No evidence of fracture. Mild endplate hypertrophic changes throughout. There is also mild hypertrophic change of the lower evan mbar apophyseal joints. No apparent focal disc herniation. There is mild broad-based bulging at L4-L5 and L5-S1. Mild bilateral foraminal narrowing at the L5-S1 level. Central canal and foramen are othe rwise adequate. Visualized soft tissue structures are unremarkable. There is mild hypertrophic change of the bilatera l SI joint. Thyroid gland is heterogeneous and enlarged, nonspecific. IMPRESSION: 1. No evidence of fracture or malalignment. 2. Mild multilevel spondylosis. Electronically signed by: Remi Dyer MD (07/14/2021 9:56 PM) [facility]
[2021-07-14] MEDS ORDERED: OXYC1TAB15 PO (22:21)
[2021-07-14] MEDS ORDERED: DIAZ5TAB PO (22:21)
[2021-07-14 22:45] VITALS: BP 134/84
[2021-07-14] MEDS ORDERED: diazePAM 5 MG TABLET. PO ONE (23:00)
[2021-07-14] MEDS ORDERED: oxyCODONE/APAP 5/325 1 TAB TABLET PO ONE (23:00)
== END 2021-07-14 23:10 | disposition home or self-care (01) ==
LOC: ER 21:07
DX: M54.5 Low back pain (principal); J44.9 Chronic obstructive pulmonary disease, unspecified; E78.00 Pure hypercholesterolemia, unspecified; I10 Essential (primary) hypertension; Z88.7 Allergy status to serum and vaccine
CPT/HCPCS: 72128; 72131; 96372; 99285; J2270